=== PATIENT | female | born 1975 | race Hispanic/Latino ===

== ENCOUNTER 2018-10-24 05:15 | Observation (INO) | payer OTHER ==
[2018-10-20 10:46] LABS: BASOPHILS % 0.4 % (0.0-1.0); EOSINOPHILS # (AUTO) 0.1 (0.0-0.4); EOSINOPHILS % 0.9 % (0.0-6.0); HEMATOCRIT 41.9 % (34.2-44.1); HEMOGLOBIN 14.3 g/dL (12.0-16.0); LYMPHOCYTES # (AUTO) 1.9 (1.0-3.2); LYMPHOCYTES % 28.2 % (18.0-39.1); MEAN CORPUSCULAR HEMOGLOBIN 28.8 pg (28-32); MEAN CORPUSCULAR HGB CONC 34.1 g/dL (31-35); MEAN CORPUSCULAR VOLUME 84.5 fL (81-99); MONOCYTES # (AUTO) 0.5 (0.2-0.8); MONOCYTES % 7.3 % (4.4-11.3); NEUTROPHILS # (AUTO) 4.3 (2.1-6.9); NEUTROPHILS % 62.8 % (38.7-80.0); PLATELET COUNT 251 x10e3/uL (140-360); RED BLOOD COUNT 4.96 x10e6/uL (3.6-5.1)
--- NOTE | 2018-10-20 10:58 | Diagnostic Imaging Report ---
EXAMINATION: CHEST 2 VIEWS INDICATION: Pre-operative COMPARISON: None FINDINGS: TUBES and LINES: None. LUNGS: The lung volumes are normal. No focal consolidation or pulmonary edema. PLEURA: No pleural effusion or pneumothorax. HEART AND MEDIASTINUM: The cardiomediastinal silhouette is normal in size and contour. BONES AND SOFT TISSUES: No acute fracture or dislocation. UPPER ABDOMEN: No free air under the diaphragm. IMPRESSION: No focal pneumonia or pulmonary edema. Signed by: Salo Samaniego MD on 10/20/2018 10:55 AM
[2018-10-20 11:03] LABS: ALANINE AMINOTRANSFERASE 16 IU/L (0-55); ALBUMIN 4.2 g/dL (3.5-5.0); ALBUMIN/GLOBULIN RATIO 1.2 (0.8-2.0); ALKALINE PHOSPHATASE 74 IU/L (40-150); ANION GAP 12.8 mmol/L (8-16); BLOOD UREA NITROGEN 10 mg/dL (7-26); BUN/CREATININE RATIO 16 (6-25); CALCIUM 9.9 mg/dL (8.4-10.2); CARBON DIOXIDE 28 mmol/L (22-29); CHLORIDE 100 mmol/L (98-107); CREATININE, SERUM 0.62 mg/dL (0.57-1.11); EST GLOMERULAR FILTRATION RATE > 60 ML/MIN (60-); GLUCOSE 87 mg/dL (74-118); POTASSIUM 3.8 mmol/L (3.5-5.1); SODIUM 137 mmol/L (136-145)
[2018-10-20 13:26] LABS: HIV 1&2 AB SCREEN NON-REACTIVE (NONREACTIVE)
[~2018-10-24] VITALS: Ht 157.5 cm; Wt 61.2 kg
[~2018-10-24 05:15] MED LIST: LOSARTAN HCTZ PO
--- OUTSIDE RECORDS SUMMARY | 2018-10-24 05:17 | XMS REPORT | Continuity of Care Document ---
Author Author [facility] Organization [facility] Address Unknown Phone Unavailable Care Team Providers Care Dye Lab Technician Name Role Phone MD Ez, Wilbert AREVALO Unavailable Insurance Providers Payer name Policy type / Coverage type Policy ID Covered green party ID Policy [place] Encounters Encounter Performer Location Date Lab Report Wilbert Hui MD [facility] Nov 14, 2013 Problems Problem Effective Dates Problem Status HYPERTENSION - BENIGN ESSENTIAL Active FH DIABETES - DM Active FH HEART DISEASE Active FH STROKE Active SCREENING, DIABETES MELLITUS Apr 10, 2013 Active SCREENING FOR LIPOID DISORDERS Apr 10, 2013 Active ANEMIA Apr 10, 2013 Active FATIGUE Apr 10, 2013 Active NONSPECIFIC ABNORMAL RESULTS LIVR FUNCTION STUDY Jul 21, 2013 Active Procedures Date Description Comments Apr 10, 2013 smoking status never smoker Nov 14, 2013 smoking status Never smoker Medications Medication Instructions Start Date Status METOPROLOL TARTRATE 25 MG TABS One po twice daily Apr 10, 2013 Inactive HYDROCHLOROTHIAZIDE 25 MG TAB 1 tablet daily in the morning Jul 21, 2013 Active Vital Signs Date Description Test Result Apr 10, 2013 weight E&M WEIGHT 135.0 lb Apr 10, 2013 height E&M HEIGHT 61 in Apr 10, 2013 temperature E&M TEMPERATURE 98.1 deg f Apr 10, 2013 blood pressure, systolic BP SYSTOLIC 133 mm Hg Apr 10, 2013 blood pressure, diastolic BP DIASTOLIC 101 mm Hg Apr 10, 2013 pulse rate E&M PULSE RATE 84 /min Jul 21, 2013 weight E&M WEIGHT 119.50 lb Jul 21, 2013 temperature E&M TEMPERATURE 98.3 deg f Jul 21, 2013 pulse rate E&M PULSE RATE 60 /min Jul 21, 2013 blood pressure, systolic BP SYSTOLIC 121 mm Hg Jul 21, 2013 blood pressure, diastolic BP DIASTOLIC 84 mm Hg Nov 14, 2013 weight E&M WEIGHT 118.0 lb Nov 14, 2013 temperature E&M TEMPERATURE 97.5 deg f Nov 14, 2013 pulse rate E&M PULSE RATE 68 /min Nov 14, 2013 blood pressure, systolic BP SYSTOLIC 121 mm Hg Nov 14, 2013 blood pressure, diastolic BP DIASTOLIC 85 mm Hg Results Date Description Test Name Value Reference Interpretation Status Apr 10, 2013 hemoglobin, blood HGB 14.5 g/dL 12.0-16.0 Apr 10, 2013 hematocrit, blood HCT 42.0 % 36.0-48.0 Apr 10, 2013 platelet count PLATELETS 193 K/CMM /mm3 133-450 Apr 10, 2013 hemoglobin, blood HGB 14.5 g/dL 12.0-16.0 Apr 10, 2013 hematocrit, blood HCT 42.0 % 36.0-48.0 Apr 10, 2013 platelet count PLATELETS 193 K/CMM /mm3 133-450 Apr 10, 2013 hemoglobin A1C, blood, as % of total hemoglobin HGBA1C 5.0 % <=5.6 Apr 10, 2013 thyroid stimulating hormone, serum TSH 1.900 uIU/mL 0.360-3.740 Apr 10, 2013 cholesterol, serum CHOLESTEROL 185 mg/dl <=199 Apr 10, 2013 triglyceride, serum, fasting TRIGLYCERIDE 276 mg/dl <=149 High Apr 10, 2013 HDL cholesterol, serum HDL 40 mg/dl >=61 Low Apr 10, 2013 LDL cholesterol, serum LDL 90 mg/dl <=99 Apr 10, 2013 sodium, serum SODIUM 140 MEQ/L mmol/L 135-145 Apr 10, 2013 potassium, serum POTASSIUM 4.6 MEQ/L mmol/L 3.5-5.1 Apr 10, 2013 creatinine, serum CREATININE 0.6 mg/dL 0.5-1.4 Apr 10, 2013 urea nitrogen, blood BUN 10 mg/dL 7-Apr 10, 2013 urea nitrogen/creatinine ratio, serum BUN/CREAT 17 null 6-25 Apr 10, 2013 albumin, serum ALBUMIN 4.7 g/dL 3.5-5.0 Apr 10, 2013 calcium, serum CALCIUM 8.9 mg/dL 8.5-10.5 Apr 10, 2013 alanine aminotransferase (SGPT), serum SGPT (ALT) 75 U/L 0-65 High Apr 10, 2013 aspartate aminotransferase (SGOT), serum SGOT (AST) 37 U/L 0-37 Apr 10, 2013 alkaline phosphatase, serum ALK PHOS 94 U/L 39-136 Nov 14, 2013 urea nitrogen, blood BUN 17 mg/dL 7-Nov 14, 2013 creatinine, serum CREATININE 0.6 mg/dL 0.5-1.4 Nov 14, 2013 sodium, serum SODIUM 134 MEQ/L mmol/L 135-145 Low Nov 14, 2013 potassium, serum POTASSIUM 4.1 MEQ/L mmol/L 3.5-5.1 Nov 14, 2013 calcium, serum CALCIUM 9.2 mg/dL 8.5-10.5 Apr 10, 2013 hemoglobin A1C, blood, as % of total hemoglobin HGBA1C 5.0 % <=5.6 Apr 10, 2013 thyroid stimulating hormone, serum TSH 1.900 uIU/mL 0.360-3.740 Apr 10, 2013 cholesterol, serum CHOLESTEROL 185 mg/dl <=199 Apr 10, 2013 triglyceride, serum, fasting TRIGLYCERIDE 276 mg/dl <=149 High Apr 10, 2013 HDL cholesterol, serum HDL 40 mg/dl >=61 Low Apr 10, 2013 LDL cholesterol, serum LDL 90 mg/dl <=99 Apr 10, 2013 sodium, serum SODIUM 140 MEQ/L mmol/L 135-145 Apr 10, 2013 potassium, serum POTASSIUM 4.6 MEQ/L mmol/L 3.5-5.1 Apr 10, 2013 creatinine, serum CREATININE 0.6 mg/dL 0.5-1.4 Apr 10, 2013 urea nitrogen, blood BUN 10 mg/dL 7-Apr 10, 2013 urea nitrogen/creatinine ratio, serum BUN/CREAT 17 null 6-25 Apr 10, 2013 albumin, serum ALBUMIN 4.7 g/dL 3.5-5.0 Apr 10, 2013 calcium, serum CALCIUM 8.9 mg/dL 8.5-10.5 Apr 10, 2013 alanine aminotransferase (SGPT), serum SGPT (ALT) 75 U/L 0-65 High Apr 10, 2013 aspartate aminotransferase (SGOT), serum SGOT (AST) 37 U/L 0-37 Apr 10, 2013 alkaline phosphatase, serum ALK PHOS 94 U/L 39-136 Jul 21, 2013 aspartate aminotransferase (SGOT), serum SGOT (AST) 10 U/L 0-37 Jul 21, 2013 alanine aminotransferase (SGPT), serum SGPT (ALT) 16 U/L 0-65 Nov 14, 2013 urea nitrogen, blood BUN 17 mg/dL 7-Nov 14, 2013 creatinine, serum CREATININE 0.6 mg/dL 0.5-1.4 Nov 14, 2013 sodium, serum SODIUM 134 MEQ/L mmol/L 135-145 Low Nov 14, 2013 potassium, serum POTASSIUM 4.1 MEQ/L mmol/L 3.5-5.1 Nov 14, 2013 calcium, serum CALCIUM 9.2 mg/dL 8.5-10.5
--- OUTSIDE RECORDS SUMMARY | 2018-10-24 05:17 | XMS REPORT | Continuity of Care Document ---
Author Author [facility] Organization [facility] Address Unknown Phone Unavailable Care Team Providers Care Belling Machine Operator Name Role Phone MD Ez, Wilbert AREVALO Unavailable Insurance Providers Payer name Policy type / Coverage type Policy ID Covered democrat ID Policy [place]) [place] Encounters Encounter Performer Location Date Office Visit Wilbert Hui MD [facility] Nov 14, 2013 Problems Problem Effective Dates [...]
--- OUTSIDE RECORDS SUMMARY | 2018-10-24 05:17 | XMS REPORT ---
Author [facility] Address Unknown Phone Unavailable Care Team Providers Care Sneller Hand Name Role Phone Everett FERRIS Unavailable Unavailable Payers Payer Name Policy Type Policy Number Effective Date Expiration Date Problems This patient has no known problems. Allergies, Adverse Reactions, Alerts Allergy Name Allergy Type Status Severity Reaction(s) Onset Date Inactive Date Treating Clinician Comments No Known Allergies DA Active U 2015-01-03 00:00:00 Medications This patient has no known medications. Results Test Description Test Time Test Comments Text Results Atomic Results Result Comments CHEST 2 VIEWS 2018-10-20 10:54:00 [place] [id number] Patient Name: JEB LAWSON MR #: [id number] : 1975 Age/Sex: 43/F Req #: [id number] Adm Physician: Ordered by: LINA FERRIS MD Report #: [id number] Location: OR Room/Bed: Procedure: [id number] DX/CHEST 2 VIEWS Exam Date: 10/20/18 Exam Time: 1034 REPORT STATUS: Signed EXAMINATION: CHEST 2 VIEWS INDICATION: Pre-operative COMPARISON: None FINDINGS: TUBES and LINES: None. LUNGS: The lung volumes are normal. No focal consolidation or pulmonary edema. PLEURA: No pleural effusion or pneumothorax. HEART AND MEDIASTINUM: The cardiomediastinal silhouette is normal in size and contour. BONES AND SOFT TISSUES: No acute fracture or dislocation. UPPER ABDOMEN: No free air under the diaphragm. IMPRESSION: No focal pneumonia or pulmonary edema. Signed by: Charmaine Samaniego MD on 10/20/2018 10:55 AM Dictated By: CHARMAINE SAMANIEGO MD [id number] Transcribed By: DANII on 10/20/18 1051 COPY TO: LINA FERRIS MD
--- OUTSIDE RECORDS SUMMARY | 2018-10-24 05:17 | XMS REPORT | Continuity of Care Document ---
Author Author [employer] (Inspect [facility]) Address Unknown Phone Unavailable Care Team Providers Care Heavy Equipment Operator/Paver Name Role Phone Nasuni Unavailable Unavailable Problems Problem Status Onset Date Classification Date Reported Comments Source NONSPECIFIC ABNORMAL RESULTS LIVR FUNCTION STUDY Active 07/21/2013 Condition 11/14/2013 [facility] SCREENING, DIABETES MELLITUS Active 04/10/2013 Condition 11/14/2013 [facility] SCREENING FOR LIPOID DISORDERS Active 04/10/2013 Condition 11/14/2013 [facility] ANEMIA Active 04/10/2013 Condition 11/14/2013 [facility] FATIGUE Active 04/10/2013 Condition 11/14/2013 [facility] HYPERTENSION - BENIGN ESSENTIAL Active Condition 11/14/2013 [facility] DIABETES - DM Active Condition 11/14/2013 [facility] HEART DISEASE Active Condition 11/14/2013 [facility] STROKE Active Condition 11/14/2013 [facility] Medications Medication Details Route Status Patient Instructions Ordering Provider Order Date Source HYDROCHLOROTHIAZIDE 25 MG TAB 1 tablet daily in the morning Active 07/21/2013 [facility] METOPROLOL TARTRATE 25 MG TABS One po twice daily No Longer Active 04/10/2013 [facility] Allergies, Adverse Reactions, Alerts No Known Medication Allergies Immunizations No Data Provided for This Section Results Order Name Results Value Reference Range Date Interpretation Comments Source Chemistry BUN 17 7 - 22 11/14/2013 [facility] Chemistry CREATININE 0.6 0.5 - 1.4 11/14/2013 [facility] Chemistry SODIUM 134 MEQ/L 135 - 145 11/14/2013 [facility] Chemistry POTASSIUM 4.1 MEQ/L 3.5 - 5.1 11/14/2013 [facility] Chemistry CALCIUM 9.2 8.5 - 10.5 11/14/2013 [facility] Chemistry BUN 17 7 - 22 11/14/2013 [facility] Chemistry CREATININE 0.6 0.5 - 1.4 11/14/2013 [facility] Chemistry SODIUM 134 MEQ/L 135 - 145 11/14/2013 [facility] Chemistry POTASSIUM 4.1 MEQ/L 3.5 - 5.1 11/14/2013 [facility] CALCIUM 9.2 8.5 - 10.5 11/14/2013 [facility] SGOT (AST) 10 0 - 37 07/21/2013 [facility] SGPT (ALT) 16 0 - 65 07/21/2013 [facility] HGBA1C 5.0 - 5.6 04/10/2013 [facility] TSH 1.900 0.360 - 3.740 04/10/2013 [facility] CHOLESTEROL 185 - 199 04/10/2013 [facility] TRIGLYCERIDE 276 - 149 04/10/2013 [facility] HDL 40 >=61 04/10/2013 [facility] LDL 90 - 99 04/10/2013 [facility] SODIUM 140 MEQ/L 135 - 145 04/10/2013 [facility] POTASSIUM 4.6 MEQ/L 3.5 - 5.1 04/10/2013 [facility] CREATININE 0.6 0.5 - 1.4 04/10/2013 [facility] BUN 10 7 - 22 04/10/2013 [facility] BUN/CREAT 17 6 - 25 04/10/2013 [facility] ALBUMIN 4.7 3.5 - 5.0 04/10/2013 [facility] CALCIUM 8.9 8.5 - 10.5 04/10/2013 [facility] SGPT (ALT) 75 0 - 65 04/10/2013 [facility] SGOT (AST) 37 0 - 37 04/10/2013 [facility] ALK PHOS 94 39 - 136 04/10/2013 [facility] HGBA1C 5.0 - 5.6 04/10/2013 [facility] TSH 1.900 0.360 - 3.740 04/10/2013 [facility] CHOLESTEROL 185 - 199 04/10/2013 [facility] TRIGLYCERIDE 276 - 149 04/10/2013 [facility] HDL 40 >=61 04/10/2013 [facility] LDL 90 - 99 04/10/2013 [facility] SODIUM 140 MEQ/L 135 - 145 04/10/2013 [facility] POTASSIUM 4.6 MEQ/L 3.5 - 5.1 04/10/2013 [facility] CREATININE 0.6 0.5 - 1.4 04/10/2013 [facility] BUN 10 7 - 22 04/10/2013 [facility] BUN/CREAT 17 6 - 25 04/10/2013 [facility] ALBUMIN 4.7 3.5 - 5.0 04/10/2013 [facility] CALCIUM 8.9 8.5 - 10.5 04/10/2013 [facility] SGPT (ALT) 75 0 - 65 04/10/2013 [facility] SGOT (AST) 37 0 - 37 04/10/2013 [facility] ALK PHOS 94 39 - 136 04/10/2013 [facility] HGB 14.5 12.0 - 16.0 04/10/2013 [facility] HCT 42.0 36.0 - 48.0 04/10/2013 [facility] PLATELETS 193 K/CMM 133 - 450 04/10/2013 [facility] HGB 14.5 12.0 - 16.0 04/10/2013 [facility] Hematology HCT 42.0 36.0 - 48.0 04/10/2013 [facility] Hematology PLATELETS 193 K/CMM 133 - 450 04/10/2013 [facility] Pathology Reports No Data Provided for This Section Diagnostic Reports No Data Provided for This Section Consultation Notes No Data Provided for This Section Discharge Summaries No Data Provided for This Section History and Physicals No Data Provided for This Section Vital Signs Vital Sign Value Date Comments Source Weight 118.0 11/14/2013 [facility] Temperature Oral (F) 97.5 F 11/14/2013 [facility] Heart Rate 68 11/14/2013 [facility] Systolic (mm Hg) 121 11/14/2013 [facility] Diastolic (mm Hg) 85 11/14/2013 [facility] Weight 119.50 07/21/2013 [facility] Temperature Oral (F) 98.3 F 07/21/2013 [facility] Heart Rate 60 07/21/2013 [facility] Systolic (mm Hg) 121 07/21/2013 [facility] Diastolic (mm Hg) 84 07/21/2013 [facility] Weight 135.0 04/10/2013 [facility] Height 61 04/10/2013 [facility] Temperature Oral (F) 98.1 F 04/10/2013 [facility] Systolic (mm Hg) 133 04/10/2013 [facility] Diastolic (mm Hg) 101 04/10/2013 [facility] Heart Rate 84 04/10/2013 [facility] Encounters Location Location Details Encounter Type Encounter Number Reason For Visit Attending Provider ADM Date DC Date Status Source [facility] Office Visit [id number] Wilbert Hui MD 11/14/2013 11/14/2013 [facility] Lab Report [id number] Wilbert Hui MD 11/14/2013 11/14/2013 [facility] Procedures No Data Provided for This Section Assessment and Plan No Data Provided for This Section Plan of Care No Data Provided for This Section Social History No Data Provided for This Section Family History No Data Provided for This Section Advance Directives No Data Provided for This Section Functional Status No Data Provided for This Section
[2018-10-24] MEDS ORDERED: CEFOXITIN 1GM/ D5W 50ML 100 ML IV ONE (06:07)
[2018-10-24] MEDS ORDERED: BUPIVACAINE LIPOSOME/PF 266 MG/20 ML IJ ONE (08:41)
[2018-10-24] MEDS ORDERED: DOCUSATE SODIUM 100 MG CAP PO PRN (10:00)
[2018-10-24] MEDS ORDERED: ZOLPIDEM TARTRATE 5 MG TAB PO PRN (10:00)
[2018-10-24] MEDS ORDERED: FENTANYL CITRATE/PF 100MCG/2 ML INJ ONE ×2 (10:06→17:55)
[2018-10-24] MEDS ORDERED: HYDROMORPHONE 0.2MG/ML-SOD CHL 30ML PCA SYRINGE IV PRN ×2 (10:15→10:30)
[2018-10-24] MEDS ORDERED: ONDANSETRON HCL INJ 2MG/ML 2ML 2 MG/ML VIAL IV PRN (10:15)
[2018-10-24] MEDS ORDERED: NALOXONE HCL INJ 0.4 MG/ML AMP IV PRN ×2 (10:15→10:30)
[2018-10-24] MEDS ORDERED: KETOROLAC TROMETHAMINE 30 MG/ML VIAL IV PRN (10:15)
[2018-10-24] MEDS ORDERED: DIPHENHYDRAMINE HCL 25 MG CAP PO PRN (10:15)
--- OUTSIDE RECORDS SUMMARY | 2018-10-24 10:24 | XMS REPORT | Continuity of Care Document ---
Author Author [employer] Address Unknown Phone Unavailable Care Team Providers Care Blast Furnace Blower Name Role Phone [employer] Unavailable Unavailable Problems Problem Status Onset Date Classification Date Reported Comments Source NONSPECIFIC ABNORMAL RESULTS LIVR FUNCTION STUDY Active 07/21/2013 Condition 11/14/2013 Medical [facility] SCREENING, DIABETES MELLITUS Active 04/10/2013 Condition 11/14/2013 [facility] SCREENING FOR LIPOID DISORDERS Active 04/10/2013 Condition 11/14/2013 [facility] ANEMIA Active 04/10/2013 Condition 11/14/2013 [facility] FATIGUE Active 04/10/2013 Condition 11/14/2013 [facility] HYPERTENSION - BENIGN ESSENTIAL Active Condition 11/14/2013 [facility] DIABETES - DM Active Condition 11/14/2013 [facility] HEART DISEASE Active Condition 11/14/2013 [facility] STROKE Active Condition 11/14/2013 [facility] Medications Medication Details Route Status Patient Instructions Ordering Provider Order Date Source HYDROCHLOROTHIAZIDE 25 MG TAB 1 tablet daily in the morning Active 07/21/2013 [facility] METOPROLOL TARTRATE 25 MG TABS One po twice daily No Longer Active 04/10/2013 [facility] Allergies, Adverse Reactions, Alerts No Known Medication Allergies Immunizations No Data Provided for This Section Results Order Name Results Value Reference Range Date Interpretation Comments Source Chemistry BUN 17 7 - 22 11/14/2013 [facility] Chemistry CREATININE 0.6 0.5 - 1.4 11/14/2013 [facility] Chemistry SODIUM 134 MEQ/L 135 - 145 11/14/2013 [facility] Chemistry POTASSIUM 4.1 MEQ/L 3.5 - 5.1 11/14/2013 [facility] Chemistry CALCIUM 9.2 8.5 - 10.5 11/14/2013 [facility] Chemistry BUN 17 7 - 22 11/14/2013 [facility] Chemistry CREATININE 0.6 0.5 - 1.4 11/14/2013 [facility] Chemistry SODIUM 134 MEQ/L 135 - 145 11/14/2013 [facility] Chemistry POTASSIUM 4.1 MEQ/L 3.5 - 5.1 [...] HGB 14.5 12.0 - 16.0 04/10/2013 [facility] Hematology HCT 42.0 36.0 - 48.0 04/10/2013 [facility] Hematology PLATELETS 193 K/CMM 133 - 450 04/10/2013 [facility] Pathology Reports No Data Provided for [...] Provider ADM Date DC Date Status Source [facility] Office Visit [id number] Wilbert Hui MD 11/14/2013 11/14/2013 [facility] Lab Report [id number] Wilbert Hui MD 11/14/2013 11/14/2013 [facility] Procedures No Data Provided for This Section [...]
--- NOTE | 2018-10-24 10:40 | NUR ---
report received from PACU, patient to arrive via stretcher alert and oriented with family at bedside.
--- NOTE | 2018-10-24 10:50 | NUR ---
patient arrived to unit via stretcher, alert and oriented. abdominal binder in place, dressing dry and in tact. COURT ORDERLY pump running and patient has button for medication control. call mathew within reach and bed in lowest position.
[2018-10-24 11:02] VITALS: BP 99/80
[2018-10-24 11:12] VITALS: BP 99/80
[2018-10-24 11:43] VITALS: BP 99/80
[2018-10-24] MEDS ORDERED: CEFOXITIN IV SCH (12:00)
[2018-10-24] MEDS ORDERED: DEXTROSE IV SCH (12:00)
--- NOTE | 2018-10-24 13:31 | Operative Report ---
DATE OF PROCEDURE: 10/24/2018 SURGEON: Obinna Sparks MD PREOPERATIVE DIAGNOSIS: A 43-year-old female, 4, para 3, status post tubal ligation, suffering with pelvic pressure and history of heavy periods and very large fibroid uterus and complex right ovarian cyst. POSTOPERATIVE DIAGNOSIS: A 43-year-old female, 4, para 3, status post tubal ligation, suffering with pelvic pressure and history of heavy periods, complex right ovarian cyst, both ovaries look normal, and uterus enlarged to 14-week size of the with a fibroid uterus. SURGICAL PROCEDURES: 1. Examination under anesthesia. 2. Total abdominal hysterectomy. MEDICAL OFFICE CLERK: Arsalan Mak M.D. ANESTHESIA: General. FINDINGS AT THE TIME OF SURGERY: On EUA, cervix looks normal, uterus enlarged to 14-week size, no adnexal masses felt. On laparotomy, the uterus is enlarged about 14-week size with a fibroid uterus and both ovaries look normal. No pelvic adhesions. Both tubes were occluded before with Falope rings. ESTIMATED BLOOD LOSS: Around 100 mL. COMPLICATIONS: No complications. COUNTS: Instrument and swab counts were correct. DRAIN: Keating catheter in the bladder at the end and drained about 400 mL of clear urine during the surgery and still draining the clear urine. PROCEDURE IN DETAIL: The patient was brought to the operating room, put in the supine position and general anesthesia was given without any problems. After adequate anesthesia, the patient was examined under anesthesia. The findings were as dictated above. Then, she was prepped and draped in the routine fashion and proceeded with the surgery. Keating catheter in the bladder draining clear urine. I made a low transverse Pfannenstiel skin incision and taken down to the fascia. The fascia opened in a transverse fashion. The rectus muscle longitudinally, identified the parietal peritoneum, opened and entered the abdominal cavity without any problems. Then, O'Aguayo-O'Fabian retractor placed in the incision for better exposure and put in the lower blade then packed the bowels up with wet laps, two of them and put in the upper blade. The both ovaries looked normal. There was no cyst on the right ovary and the patient wants both ovaries preserved if look normal, therefore decided to go with the hysterectomy saving the ovaries. No pelvic adhesions. No pelvic endometriosis. I held the fundus of the uterus with a [place] clamp and delivered outside the incision and then the uterus was quite big 14-week size possibly with secondary to the fibroid uterus then first round ligaments on either side clamped close to the uterus with a LigaSure and cauterized and cut. Then, bladder flap of the peritoneum opened in the midline and extended on the way up to the stumps of the round ligaments and dissected and pushed down the bladder. The bladder was dissected down. Then, the tube and ovarian ligament clamp were closed to the uterus with LigaSure, cauterized, and cut that was done on both sides. The hemostasis was good. Then, the tissue between the ovarian ligament and round ligament clamped with LigaSure, cauterized, and cut then dissected the posterior peritoneum and pushed down, the ureters were far away, dissected the uterine vessels and clamped them close to the uterus and clamped with curved Wero clamps, cut towards the uterus and suture ligated doubly using 1-0 Vicryl. This was done because the vessels were very big, feeding the uterus. Then, the uterus and cervix were elongated. Bladder dissected down some more posteriorly and anteriorly. Anteriorly and posteriorly the peritoneum dissected and pushed down and made sure the ureters were out and then cardinal ligaments on either side clamped with straight Wero clamp, cut towards the uterus with a knife and suture ligated with a transfixation suture using 1-0 Vicryl. Suture tie snugged and cut short. This was taken two bites on either side. Then, uterosacral ligaments clamped close to the uterus with curved Wero clamp, cut towards the uterus and suture ligated the stump using 1-0 Vicryl. Suture tie snugged and cut short, made sure the bladder was down and then placed the right angle clamps on either side, cut towards the uterus and we were into the vagina, cut the anterior vaginal wall and posterior vaginal wall and removed the uterus along with the cervix and sent for the pathology. The stumps of the angles suture ligated with 1-0 Vicryl using transfixation suture. Suture tie snugged and held on with a hemostat and rest of the vaginal vault closed with [id number] sutures. The hemostasis was good. Irrigated the pelvis. There was no active bleeding from anywhere and the ureters looked normal. Urine was clear in the Keating bag. Then, injected Exparel local anesthetic 5 mL into the vaginal vault and O'Aguayo-O'Fabian retractor was removed. All the laps removed and closed the abdominal wall in layers. Parietal peritoneum closed with 2-0 Vicryl with continuous stitches. Fascia closed with 1-Vicryl using two sutures starting at the corners and ending in the midline and subcutaneous tissue approximated with 2-0 Vicryl with continuous stitches. Skin approximated with 4-0 Vicryl using subcuticular stitches. The patient tolerated the procedure well. There were no complications. Estimated blood loss around 100 mL. Urine clear and drained about 400 mL. Instrument and swab counts three times correct. The patient moved to the recovery room. MD ANTWAN Etienne/EDIN /[id number]
[2018-10-24] MEDS: DEXTROSE 5%/LACTATED RINGERS 1,000 ML IV SCH ×2 (13:47→23:04)
[2018-10-24] MEDS: CEFOXITIN IV SCH ×2 (13:47→20:22)
[2018-10-24] MEDS: DEXTROSE IV SCH ×2 (13:47→20:22)
[2018-10-24 15:54] VITALS: BP 113/80
[2018-10-24] MEDS ORDERED: PROPOFOL IV EMULSION 10 MG/ML 20 ML VIAL ONE (17:55)
[2018-10-24] MEDS ORDERED: LIDOCAINE HCL 2% JELLY 5 ML TUBE ONE (17:55)
[2018-10-24] MEDS ORDERED: ROCURONIUM BROMIDE 10 MG/ML 5ML VIAL ONE (17:55)
[2018-10-24] MEDS ORDERED: DEXAMETHASONE SOD PHOS INJ 4 MG/ML VIAL ONE (17:55)
[2018-10-24] MEDS ORDERED: ONDANSETRON HCL INJ 2MG/ML 2ML 2 MG/ML VIAL ONE (17:55)
[2018-10-24] MEDS ORDERED: LIDOCAINE HCL 2% LOCAL INJ 5 ML SDV VIAL INJ ONE (17:55)
[2018-10-24] MEDS ORDERED: SEVOFLURANE INHAL SOLN 250 ML PEN BTL ONE (17:55)
[2018-10-24] MEDS ORDERED: MIDAZOLAM HCL 2 MG/2 ML VIAL ONE (17:55)
--- NOTE | 2018-10-24 18:48 | NUR ---
received patient aaox3, resting in bed. family at bedside. pain 3, patient has FLEET DRIVER pump- pain control button within reach. no needs voiced at this time. bed locked and in lowest position, call light within reach. will continue to monitor.
--- NOTE | 2018-10-24 18:51 | NUR ---
rounded with power and recovery shift engineer nurse, patient aware of change and in no distress with at bedside. call mathew within reach and bed in lowest position.
[2018-10-24 20:00] VITALS: BP 103/74
[2018-10-24 20:28] VITALS: BP 103/74
[2018-10-25 00:39] VITALS: BP 117/79
[2018-10-25] MEDS: DEXTROSE IV SCH ×2 (01:29→08:52)
[2018-10-25] MEDS: CEFOXITIN IV SCH ×2 (01:29→08:52)
[2018-10-25] MEDS: DEXTROSE 5%/LACTATED RINGERS 1,000 ML IV SCH ×2 (02:25→07:22)
[2018-10-25 04:00] VITALS: BP 114/79
--- NOTE | 2018-10-25 06:32 | NUR ---
jacobs cath removed at this time with tip intact. patient tolerated well. dtv. instructed to call for assistance, patient verbalized understanding.
[2018-10-25 06:42] LABS: BASOPHILS % 0.1 % (0.0-1.0); EOSINOPHILS % 0.2 % (0.0-6.0); HEMATOCRIT 33.3 % (34.2-44.1); HEMOGLOBIN 11.2 g/dL (12.0-16.0); LYMPHOCYTES # (AUTO) 1.7 (1.0-3.2); LYMPHOCYTES % 18.8 % (18.0-39.1); MEAN CORPUSCULAR HEMOGLOBIN 28.8 pg (28-32); MEAN CORPUSCULAR HGB CONC 33.6 g/dL (31-35); MEAN CORPUSCULAR VOLUME 85.6 fL (81-99); MONOCYTES # (AUTO) 0.8 (0.2-0.8); MONOCYTES % 8.5 % (4.4-11.3); NEUTROPHILS # (AUTO) 6.5 (2.1-6.9); NEUTROPHILS % 72.1 % (38.7-80.0); PLATELET COUNT 221 x10e3/uL (140-360); RED BLOOD COUNT 3.89 x10e6/uL (3.6-5.1); RED CELL DISTRIBUTION WIDTH 13.2 % (11.7-14.4)
[2018-10-25 07:03] LABS: ANION GAP 10.4 mmol/L (8-16); BLOOD UREA NITROGEN < 5 mg/dL (7-26); CALCIUM 8.7 mg/dL (8.4-10.2); CARBON DIOXIDE 28 mmol/L (22-29); CHLORIDE 102 mmol/L (98-107); CREATININE, SERUM 0.56 mg/dL (0.57-1.11); EST GLOMERULAR FILTRATION RATE > 60 ML/MIN (60-); GLUCOSE 120 mg/dL (74-118); POTASSIUM 3.4 mmol/L (3.5-5.1); SODIUM 137 mmol/L (136-145)
--- NOTE | 2018-10-25 07:05 | NUR ---
report given to oncoming nurse, patient in stable condition.
[2018-10-25 07:09] LABS: BUN/CREATININE RATIO 9 (6-25)
[2018-10-25 08:00] VITALS: BP 132/83
--- NOTE | 2018-10-25 08:00 | NUR ---
Pt received in bed with eyes open. Pt is aox4 and able to verbalize needs. Pt continues on SOFTWARE TEST ANALYST pump with dilaudid. Pt states she feels a little dizzy with the Dilaudid. Dressing to lower abdomen is dry and intact. Dr. Sparks was here and removed dressing and placed an ABD pad. Incision is well approximated zero drainage noted. Received orders to DC SOFTWARE TEST ANALYST pump and start on oral pain medication. Pt was advanced to full liquid diet and continue to advance diet when she expels gas.
[2018-10-25 08:03] VITALS: BP 132/83
[2018-10-25] MEDS ORDERED: IBUPROFEN 400 MG TAB PO PRN (08:30)
[2018-10-25] MEDS: HYDROCODONE/APAP 5MG-325MG TAB PO PRN ×2 (11:13→16:26)
[2018-10-25] MEDS ORDERED: COLACE100 MG PO (11:44)
[2018-10-25] MEDS ORDERED: MOTRIN IB200 MG PO (11:44)
[2018-10-25] MEDS ORDERED: NORCO 5-325 TA1 EACH PO (11:45)
[2018-10-25 12:02] VITALS: BP 121/79
[2018-10-25 16:05] VITALS: BP 122/80
--- NOTE | 2018-10-25 18:03 | NUR ---
Pt discharged home a this time. Pt and family verbalized understanding of all discharge instructions and follow up appts. Pt tolerated solid food well and was expelling gas. Pt went home with three prescriptions two for pain and one for stool softner.
== END 2018-10-25 18:09 | disposition home or self-care (01) ==
LOC: OR 05:15 → PACU V 10:02 → MED/SURG 10:53
PROVIDERS: ADMIT Specialist; ATTEND Specialist
DX: D25.9 Leiomyoma of uterus, unspecified (principal); N94.6 Dysmenorrhea, unspecified; I10 Essential (primary) hypertension
CPT/HCPCS: 36415 ×2; 58150; 71046; 80048; 80053; 81025; 85025 ×2; 86900; 87390; 88307; 93005; C9290; G0378 ×2; G0433; G0435; J0694; J1100; J2001 ×2; J2250; J2405; J2704; J3010; J7121 ×2